=== PATIENT | female | born 2000 | race African-American/Black ===

== ENCOUNTER 2023-01-11 10:47 | Emergency (ER) | payer OTHER ==
[~2023-01-11] VITALS: Ht 167.6 cm; Wt 66.0 kg
[2023-01-11 10:49] VITALS: BP 126/61; PULSE 75; RESP 14; TEMP 97.9; O2SAT 100
== END 2023-01-11 10:52 | disposition left against medical advice (07) ==
LOC: ER 10:47
DX: R52 Pain, unspecified (principal)
CPT/HCPCS: 99281